=== PATIENT | female | born 1995 ===

== ENCOUNTER 2016-06-19 07:36 | Inpatient (IN) | payer MEDICAID, SELFPAY ==
[2016-06-19] MEDS ORDERED: Lactated Ringer's 1,000 ML IV ONE (10:30)
[2016-06-19 10:31] VITALS: BMI 30.4
[2016-06-19] MEDS ORDERED: Nalbuphine 20 mg/ml Inj (1 ml) IVP PRN (10:59)
[2016-06-19 11:09] LABS: BASO # 0.1 K/uL (0.0-0.2); BASO % 0.5 % (0.0-2.0); EOS # 0.1 K/uL (0.0-0.7); EOS % 0.7 % (0.0-4.0); HEMATOCRIT 36.3 % (34.0-47.0); LYMPH # 1.9 K/uL (1.0-4.3); LYMPH % 18.3 % (20.0-40.0); MEAN CELL VOLUME 91.4 fl (81.0-99.0); MEAN CORPUSCULAR HEMOGLOBIN 31.1 pg (27.0-31.0); MEAN PLATELET VOLUME 11.2 fl (7.2-11.7); MONO # 0.5 K/uL (0.0-0.8); MONO % 4.4 % (0.0-10.0); NEUT % 76.1 % (50.0-75.0); RED CELL DISTRIBUTION WIDTH 12.5 % (11.5-14.5); WHITE BLOOD COUNT 10.5 K/uL (4.8-10.8)
--- NOTE | 2016-06-19 11:38 | OBADHP ---
Datetime: 06/19/2016 11:35 Admit Comment, IP Provider: 20 yo G1 at 39+1 wks in labor IV nubaine ordered for pain H_P dictated, "[id number]" (ES) Extremities - PN: Normal Neurologic - PN: Normal General - PN: Normal FHR - Baseline A Provider: 120 Membranes, Provider: Intact Vital Signs Provider: Reviewed IP Chief Complaint: Uterine contractions NICHD Variability Prov Fetus A: Moderate 6-25bpm NICHD Accel Fetus A IP Provider: [id number] FHR Category Provider Fetus A: Category I NICHD Decel Fetus A IP Provider: None Dilatation, Provider: 2 Effacement, Provider: 75 Station, Provider: -1 Genitourinary Exam: Normal EGA AdmitDate IP: 39.1 IP Adm Impression: Term, intrauterine IP Admit Plan: Initiate labor protocol
[2016-06-19 11:56] VITALS: BP 121/79; PULSE 68; RESP 18; TEMP 98
--- NOTE | 2016-06-19 12:22 | HP ---
HISTORY OF PRESENT ILLNESS: This is a 20-year-old G1 at 39 weeks and 1 day with an EDC of 06/25/2016 by LMP consistent with 15-week ultrasound who presents with painful contractions that started around 3:30 a.m. Denies leaking of fluid , reports a little spotting, and reports positive movement. The patient received her care at the [facility]. The patient's care was complicated by the fact that on 04/30, she was spilling 500 glucose, and so a 3-hour was done on 04/30/2016. Fasting was 66. One-hour was 156. Two-hour was 91, and 3-hour was 114. The patient is also Rh negative. She received RhoGAM on 04/02/2016. The patient had anemia and is on ferrous sulfate 325 mg 1 tab p.o. daily. On her 05/13/2016 ultrasound, interval growth was appropriate; however, BPD is lagging 2 weeks behind ROGELIO dating on 05/13/2016. On 06/03/2016, ultrasound interval growth was appropriate; however BPD continued to lag by 2 weeks on that scan. On 06/10/2016, GBS is negative. PAST MEDICAL HISTORY: Healthy. PAST SURGICAL HISTORY: None. MEDICATIONS: vitamins and ferrous sulfate 325 one p.o. daily. ALLERGIES: No known drug allergies. FAMILY HISTORY: Noncontributory. SOCIAL HISTORY: The patient denies tobacco, alcohol, and illicit drug use. GYNECOLOGICAL HISTORY: Menarche at 11, regular periods. The patient denies any STDs or any abnormal Pap smears. LABS: Blood type A-negative, antibody screen negative, 1-hour Glucola done on 02/20/2016 was 87. On 04/30/2016, a 3-hour was done. Fasting sugar was 66, one-hour 156. Two-hour was 91, and 3-hour was 114. On 03/19/2016, hemoglobin was 10.7. Chlamydia and gonorrhea were negative. Cystic fibrosis negative. Hepatitis B surface antigen negative. Hemoglobin electrophoresis normal pattern. HIV was negative. Pap smear was normal, HPV negative. RPR was negative. On 03/19/2016, urine culture was negative. Urine toxicology was negative, and on 06/10/2016, GBS was negative. PHYSICAL EXAMINATION: VITAL SIGNS: Afebrile. Vital signs stable. GENERAL: The patient appears slightly uncomfortable in bed during the contractions. ABDOMEN: Soft, nontender, gravid. Ultrasound done at the bedside revealed that the baby is cephalic presentation. VAGINAL EXAM: was 2 cm, 60% effaced at 8 a.m., done by Dr. Au, the hospitalist, and then around 10 a.m., the patient was rechecked by the RN and the cervical exam was 2 cm, 75% effaced, -1 station, soft and posterior. EXTREMITIES: Nontender. External monitoring: Baseline is in the 120s with moderate variability and positive accelerations TOCODYNAMOMETER: Contractions about every 7-8 minutes. ASSESSMENT AND PLAN: This is a 20-year-old G1 at 39 weeks and 1 day complaining of painful contractions in early labor. The patient desires pain medication. Will start with 10 mg of IV Nubain. heart tracing is reassuring. GBS is negative. Josh Noland MD cc: [id number] TT: 06/19/2016 12:21:22 jn [email or web address]
[2016-06-19] MEDS: Lactated Ringer's 1,000 ML IV SCH ×2 (16:41→23:11)
[2016-06-19] MEDS ORDERED: Lidocaine 1% Inj (20ml) ONE (19:24)
[2016-06-19] MEDS ORDERED: Fentanyl/Bupivacaine HCl 250 ML EPI ONE (20:15)
--- NOTE | 2016-06-19 21:50 | OBPN ---
Datetime: 06/19/2016 21:47 IP Progress Impression: Normal progression of labor IP Procedures: Artificial ROM; Sterile Vag Exam IP Progress Plan: Continue present management Membranes, Provider: Ruptured Amniotic Fluid Color, Provider: Clear FHR - Baseline A Provider: 120 IP Progress Note Comment: 20 yo G1 at 39+ 1 wks in labor, s/P AROM moderate clear fluid FHT reassuring, GBS negative NICHD Accel Fetus A IP Provider: [id number] NICHD Variability Prov Fetus A: Moderate 6-25bpm Dilatation, Provider: 7-8 Effacement, Provider: 100 Station, Provider: -1 Datetime: 06/19/2016 15:25 Contraction Comments Provider: Q5-9 Vital Signs Provider: Reviewed FHR Category Provider Fetus A: Category I NICHD Decel Fetus A IP Provider: None
--- NOTE | 2016-06-19 22:33 | OBPN ---
Datetime: 06/19/2016 22:30 IP Progress Impression: Normal progression of labor IP Procedures: Sterile Speculum Exam IP Progress Plan: Continue present management Membranes, Provider: Ruptured Amniotic Fluid Color, Provider: Clear FHR - Baseline A Provider: 120 IP Progress Note Comment: 20 yo G1 at 39+1 wks in labor FHT reasuring, GBS negative Vital Signs Provider: Reviewed NICHD Variability Prov Fetus A: Moderate 6-25bpm Dilatation, Provider: 9 Effacement, Provider: 100 Station, Provider: 0
[2016-06-19] MEDS ORDERED: Oxytocin 30 units/LR 500ML 30 U/500 ML BAG IV ONE (23:37)
[2016-06-19] MEDS ORDERED: Oxycodone/Acetaminophen 5/325 mg Tab PO PRN ×2 (23:56)
--- NOTE | 2016-06-20 00:05 | OBDS ---
MATERNAL INFORMATION Provider Comments: Pt progressed to complete and pushed to deliver a viable female infant through cl ear fluid at 23:42. Apgars 9 and 9. Wt 3115 gms, 6#13.8. Mouth and nares bulb-suctioned. p laced on mother's abdomen. Cord clamped and cut. Cord blood collected. Placenta delivered spontane ously intact w/ 3vc at 23:45. Pt and baby tolerated the procedure well. B/l first degree tears repa ired w/ 3-0v rapide. Rectum intact. EBL 150mL LABOR SUMMARY EDC: 06/25/2016 00:00 LABOR INFORMATION Group B Beta Strep: Negative PRESENTATION/POSITION BABY A Presentation: Cephalic
[2016-06-20] MEDS ORDERED: Oxytocin 30 units/LR 500ML 30 U/500 ML BAG IV ONE (00:10)
[2016-06-20] MEDS ORDERED: Nalbuphine 20 mg/ml Inj (1 ml) IVP PRN (01:25)
[2016-06-20] MEDS ORDERED: Oxycodone/Acetaminophen 5/325 mg Tab PO PRN ×2 (01:25)
[2016-06-20] MEDS ORDERED: Lactated Ringer's 1,000 ML IV SCH (01:25)
[2016-06-20 06:36] LABS: HEMATOCRIT 34.5 % (34.0-47.0); MEAN CELL VOLUME 90.8 fl (81.0-99.0); MEAN CORPUSCULAR HEMOGLOBIN 30.7 pg (27.0-31.0); MEAN CORPUSCULAR HGB CONC 33.8 g/dL (33.0-37.0); RED CELL DISTRIBUTION WIDTH 12.1 % (11.5-14.5); WHITE BLOOD COUNT 15.4 K/uL (4.8-10.8)
--- NOTE | 2016-06-20 09:27 | OBPPN ---
Datetime: 06/20/2016 06:06 PP Pain Prov: Within normal limits PP Nausea Prov: Denies PP Flatus Prov: Yes PP BM Prov: No PP Breasts Prov: Normal PP Heart Prov: Normal PP Lungs Prov: Normal PP Abdomen/Uterus Prov: Normal PP Lochia Prov: Normal PP Vulva/Perineum Prov: Normal PP CVA Tenderness Prov: Normal PP Extremities Prov: Normal PP C/S Incision Prov: Not Applicable PP Progress Prov: Normal PP Comments Phys Exam Prov: uterus: firm at level umbilicus PP Impression Prov: Normal progression PP Plan Prov: Continue present management PP Progress Note Prov: 20 y/o seen and examined at bedside. Patient s/p 6 hours ago, le d uneventful overnight. Patient reports mild pelvic pain controlled w/ pain meds. OOB/Ambulating w/ o dizziness. Breast/bottle feeding w/o difficulty. Tolerating PO diet well. Lochia is less than me nses in volume. Voiding freely w/ no blood noted. Reports flatus but not bowel movement yest. [place] es fevers, chills, n/v/d, CP/SOB, lightheadedness and calf pain. Nurse reported me HR 134 b/min, but clinically patient asymptomatic. HR: 96 b/min. BP: 100/68 mmhg Assessment: 20 y/o s/p on 06/19/2016 @ 23:42 am am tolerating pain w/ medication, mo ating oral intake, adequate urine output, doing well on PPD1. Plan: Ibuprofen 600 mg 1 tab Q6h PO prn for mild pain. -Percocet 5/325 mg 1-2 tabs PO Q6h prn for mod/severe pain. Encourage breast feeding and ambulation. Flaco Christina PGY-1 OBH ADDENDUM: pt seen _ examined by me. agree with above assessment and plan. Vital Signs Provider PP: Reviewed; Within Normal Limits
--- NOTE | 2016-06-20 10:24 | OBHP ---
Datetime: 06/19/2016 22:30 Amniotic Fluid Color, Provider: Clear Datetime: 06/19/2016 21:47 NICHD Accel Fetus A IP Provider: [id number] Datetime: 06/19/2016 15:25 Contraction Comments Provider: Q5-9 FHR Category Provider Fetus A: Category I NICHD Decel Fetus A IP Provider: None Datetime: 06/19/2016 11:35 EGA AdmitDate IP: 39.1 IP Indication for Induction: Not Applicable Datetime: 06/19/2016 08:20 IP Adm Impression: Term, intrauterine IP Admit Plan: Observation/Evaluation Admit Comment, IP Provider: 20yo g1 edc 5/18 presents w/ c/o painful ctxs. Denies srom, bleeding or decreased fm pmhx: denies nkda medic:pnv pshx: deneis shx: denies etoh, illicit drugs or tobacco i: 39wks labor eval p: pt signed over to dr. kamara, observe for labor. late entry due to lack of internet access at time of eval Pelvic Type - PN: Adequate Extremities - PN: Normal Abdomen - PN: Normal Breast - PN: Normal Lungs - PN: Normal Heart - PN: Normal Neurologic - PN: Normal HEENT - PN: Normal General - PN: Normal Presentation-Admit: Vertex FHR - Baseline A Provider: 120 Membranes, Provider: Intact Vital Signs Provider: Within Normal Limits IP Chief Complaint: Uterine contractions NICHD Variability Prov Fetus A: Moderate 6-25bpm Dilatation, Provider: 2 Effacement, Provider: 60 Station, Provider: -1 Genitourinary Exam: Normal DTRs - PN: Normal
--- NOTE | 2016-06-21 09:43 | OBPPN ---
Datetime: 06/21/2016 06:06 PP Pain Prov: Within normal limits PP Nausea Prov: Denies PP Flatus Prov: Yes PP BM Prov: No PP Breasts Prov: Normal PP Heart Prov: Normal PP Lungs Prov: Normal PP Abdomen/Uterus Prov: Normal PP Lochia Prov: Normal PP Vulva/Perineum Prov: Normal PP CVA Tenderness Prov: Normal PP Extremities Prov: Normal PP C/S Incision Prov: Not Applicable PP Progress Prov: Normal PP Comments Phys Exam Prov: Uterus: fundus; firm below umbilicus, non tender VE: minimal lochia, non foul smelling PP Impression Prov: Normal progression PP Plan Prov: Continue present management; Discharge PP Progress Note Prov: 20 y/o seen and examined at bedside. Patient had uneventful overnigh t. Patient reports mild pelvic pain controlled w/ pain meds. OOB/Ambulating w/o dizziness. Breast/ bottle feeding w/o difficulty. Tolerating PO diet well. Lochia is less than menses in volume. Void ing freely w/ no blood noted. Reports flatus but not bowel movement yest. Denies fevers, chills, n /v/d, CP/SOB, lightheadedness and calf pain. Assessment: 20 y/o s/p on 06/19/2016 @ 23:42 am am tolerating pain w/ medication, mo ating oral intake, adequate urine output, doing well on PPD2. Plan: Ibuprofen 600 mg 1 tab Q6h PO prn for mild pain. Encourage breast feeding and ambulation. -Discharge Home Flaco Christina PGY-1 agree with above precautions givne to patient, if lighthheaded, fever, chills, nause, vomiting, worsenign pain, hea vy bleeding go to [facility]art ER adn ruben lMD s/p Rhogam received Vital Signs Provider PP: Reviewed; Within Normal Limits
--- NOTE | 2016-06-21 09:43 | OBDCSUM ---
Datetime: 06/21/2016 06:09 Discharged to, Provider: Home Follow up at, Provider: [facility] [place] Disch Instr Activity: Normal activity; May Shower Disch Instr Diet: Regular Discharge Instructions, Provider: Routine instructions given Discharge Diagnosis, Provider: Term Delivered Discharge Time: 06/21/2016 06:09 Follow up in weeks, Provider: 6 weeks Disch Activity Restrictions: No exercising; No lifting; No sexual activity; Nothing in vagina - Inte rcourse, tampons, douche Discharge Comment, Provider: 20 y/o s/p C @ 39.1 weeks GA Delivered baby girl on 06/19/16 @ 23:42 ,weight 3115 g , : 9-9 Patient doing well, stable for discharge. Prescription given for pain -Encourage -Tylenol 600 mg PO 1 tab PO Q6h for pain PRN -Discharge today Ambulate w/ caution, nothing in vagina, no heavy lifting, avoid stairs, if excessive bleeding or f ever without relief from Tylenol go to ED - Advised for F/U [facility] clinic in 6 week and 2-3 days for with peditrician. Flaco Christina PGY1 Contraception after Delivery: Not Planning to Use
== END 2016-06-21 13:25 | disposition home or self-care (01) | DRG 373 ==
LOC: H.EROB2 07:36 → H.L&D 10:48 → H.OB/GYN 06-20 04:29
PROVIDERS: ADMIT Obstetrics & Gynecology; ATTEND Obstetrics & Gynecology
PROC: 10E0XZZ Delivery of Products of Conception, External Approach (ICD-10-PCS; principal; 2016-06-19)
PROC: 0HQ9XZZ Repair Perineum Skin, External Approach (ICD-10-PCS; 2016-06-19)
PROC: 4A1HXCZ Monitoring of Products of Conception, Cardiac Rate, External Approach (ICD-10-PCS; 2016-06-19)
DX: O71.4 Obstetric high vaginal laceration alone (principal); D64.9 Anemia, unspecified; O99.02 Anemia complicating childbirth; Z37.0 Single live birth; Z3A.39 39 weeks gestation of pregnancy